=== PATIENT | male | born 1970 | race Two or more races ===

== ENCOUNTER 2019-01-08 08:31 | Emergency (ER) | payer MEDICAID, OTHER ==
[~2019-01-08] VITALS: Ht 175.3 cm; Wt 102.1 kg
--- NOTE | 2019-01-08 08:41 | NUR ---
Patient was seen by MD. He is awake and alert. C/O hip pain. States he does not want any pain medication at this time.
[2019-01-08] MEDS ORDERED: HYDROCODONE/APAP 10-325 MG TABLET PO ONE (09:00)
[2019-01-08] MEDS ORDERED: IBUPROFEN 600 MG TABLET ONE (09:04)
--- NOTE | 2019-01-08 09:14 | NUR ---
DC, RX (INCLUDING PRECAUTIONS) AND FOLLOW UP INSTRUCTIONS GIVEN AND EXPLAINED TO PATIENT WHO STATES HE UNDERSTANDS ALL INSTRUCTIONS.
[2019-01-08] MEDS ORDERED: IBUPROFEN 600 MG TABLET PO ONE (09:15)
== END 2019-01-08 09:16 | disposition home or self-care (01) ==
LOC: ER 08:31
DX: M25.551 Pain in right hip (principal); K21.9 Gastro-esophageal reflux disease without esophagitis; V43.52XA Car driver injured in collision with other type car in traffic accident, initial encounter; Y93.89 Activity, other specified; Y92.410 Unspecified street and highway as the place of occurrence of the external cause; Y99.8 Other external cause status
CPT/HCPCS: 73502; A4663